=== PATIENT | female | born 1965 | race Caucasian/White ===

== ENCOUNTER 2018-08-02 12:51 | Emergency (ER) | payer MEDICARE ==
[2018-08-02 13:58] LABS: BASOPHIL % 0.3 % (0.0-0.4); Basophil (Absolute #) 0.02 (0-0.4); Eosinophil % 2.6 % (0.00-5.0); Eosinophil (Absolute #) 0.18 (0-0.5); Granulocyte Absolute (ANC) 3.84 (1.4-6.9); Granulocytes % 55.9 % (36.0-66.0); Hematocrit 45.7 % (35-47); Hemoglobin 15.1 gm/dl (12.0-16.0); Lymphocyte (Absolute #) 2.39 (1.0-4.6); Lymphocytes % 34.7 % (24.0-44.0); Mean Cell Volume 81.5 fl (78-100); Mean Corpuscular Hemoglobin 26.9 pg (26-32); Mean Platelet Volume 11.6 fl (6-9.5); Monocyte (Absolute #) 0.45 (0.0-1.3); Monocytes % 6.5 % (0.0-12.0); Platelet Count 246 K/mm3 (150-450); Red Blood Count 5.61 M/mm3 (4.1-5.4); Red Cell Distribution Width 15.8 % (11.5-14.0); White Blood Count 6.9 K/mm3 (4.0-10.5)
--- NOTE | 2018-08-02 14:01 | ERPHSYRPT ---
- History of Present Illness Time Seen by Provider: 08/02/18 13:35 Source: patient, other (friends) Exam Limitations: no limitations Patient Subjective Stated Complaint: patient had what was presumed to be witnessed seizure in parking lot at [employer] brought in private car to ER Triage Nursing Assessment: pt alert nad orietnedx3, able to ambulate with assistance right arm has tremor, pulses equal bialteral radius, pupilsperrla2, lung soudns clear, patient did not bit tongue or deficate self. Physician History: This is a 52-year-old black female with history of high blood pressure, anxiety , depression. Patient is brought by her friend she apparently was noted to have tonic-clonic activity in a truck witnessed by her friends which lasted about 10 minutes questionable whether patient had any postictal period. Patient apparently had left [facility] shortly prior to having her seizure-like activity. The patient arrives in talking to her she has some tremor to her hands and is alert and oriented and talking well. the patient does state that she is on Xanax and hasn't taken any for a week she states she hasn't taken any of her medications for a week. Past medical history includes high blood pressure, anxiety, depression Past surgical history includes hysterectomy, left foot surgery, cholecystectomy. Social history of patient denies drug or alcohol use she does relate that she has tobacco use. Timing/Duration: today (just prior to arrival) Severity: moderate Modifying Factors: Improves With: other (no medications for one week) Associated Symptoms: seizure (10 minutes seizure-like activity prior to arrival) , No nausea, No vomiting, No abdominal pain, No shortness of breath, No heartburn, No diaphoresis, No cough, No chills, No chest pain, No fever, No headaches, No loss of appetite, No malaise, No rash, No syncope Allergies/Adverse Reactions: tramadol Allergy (Verified 08/02/18 13:04) Home Medications: Omeprazole 08/02/18 [History] Trazodone HCl 150 mg [Desyrel 150 MG] 08/02/18 [History] Venlafaxine HCl [Effexor Xr] 08/02/18 [History] Venlafaxine HCl [Venlafaxine HCl ER] 08/02/18 [History] lamoTRIgine [Lamictal] 08/02/18 [History] Hx Tetanus, Diphtheria Vaccination/Date Given: Yes Hx Influenza Vaccination/Date Given: Yes Hx Pneumococcal Vaccination/Date Given: Yes Immunizations Up to Date: Yes - Review of Systems Constitutional: No Fever, No Chills Eyes: No Symptoms Ears, Nose, & Throat: No Symptoms Respiratory: No Cough, No Dyspnea Cardiac: No Chest Pain, No Edema, No Syncope Abdominal/Gastrointestinal: No Abdominal Pain, No Nausea, No Vomiting, No Diarrhea Genitourinary Symptoms: No Dysuria Musculoskeletal: No Symptoms Skin: No Rash Neurological: Seizure (10 minutes seizure-like activity prior to arrival), Tremors, No Dizziness, No Focal Weakness, No Gait Changes, No Headache, No Lethargy, No Paralysis, No Parasthesia Psychological: Anxiety, Depression Endocrine: No Symptoms All Other Systems: Reviewed and Negative - Past Medical History Pertinent Past Medical History: Yes Neurological History: Seizures Psycho-Social History: Anxiety, Depression - Past Surgical History Past Surgical History: No - Social History Smoking Status: Current every day smoker Drug Use: none Patient Lives Alone: Yes - Female History Hx Now: No - Nursing Vital Signs Nursing Vital Signs: Initial Vital Signs Temperature 99 F 08/02/18 12:51 Pulse Rate 70 08/02/18 12:51 Respiratory Rate 16 08/02/18 12:51 Blood Pressure 143/86 08/02/18 12:51 O2 Sat by Pulse Oximetry 97 08/02/18 12:51 Pain Scale Pain Intensity 0 - Physical Exam General Appearance: no apparent distress, alert, other (tremor in hands when attempts finger to nose) Eye Exam: PERRL/EOMI Ears, Nose, Throat Exam: normal ENT inspection, TMs normal, pharynx normal, moist mucous membranes Neck Exam: normal inspection, non-tender, supple, full range of motion Respiratory Exam: normal breath sounds, lungs clear, No respiratory distress Cardiovascular Exam: regular rate/rhythm, normal heart sounds, normal peripheral pulses, capillary refill <2 sec Gastrointestinal/Abdomen Exam: soft, normal bowel sounds, No tenderness, No mass Back Exam: normal inspection, normal range of motion, No CVA tenderness, No vertebral tenderness Extremity Exam: normal inspection, normal range of motion, pelvis stable Neurologic Exam: alert, oriented x 3, 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, normal mood/ affect, other (tremor in hands when attempts finger to nose), No motor deficits , No sensory deficit, No intoxicated appearance, No slurred speech Skin Exam: normal color, warm, dry, No rash Lymphatic Exam: No adenopathy SpO2 Interpretation: normal (97%) SpO2: 97 - Course Nursing assessment & vital signs reviewed: Yes EKG Interpreted by Me: RATE (66 bpm), Sinus Rhythm, NORMAL AXIS, Other (EKG: Sinus rhythm, 66 beats per minute, normal axis, no acute ST or T wave changes) - CT Exams Head CT Interpretation: Discussed w/radiologist (head CT: Normal head CT without contrast exam.) Ordered Tests: Active Orders 24 hr Category Date Time Status Accucheck STAT Care 08/02/18 13:42 Active EKG-ER Only STAT Care 08/02/18 13:42 Active HEAD WITHOUT CONTRAST [CT] Stat Exams 08/02/18 14:57 Completed ACETAMINOPHEN Stat Lab 08/02/18 13:55 Completed CBC W DIFF Stat Lab 08/02/18 13:55 Completed CMP Stat Lab 08/02/18 13:55 Completed CULTURE,URINE Stat Lab 08/02/18 13:43 Received ETHYL ALCOHOL Stat Lab 08/02/18 13:55 Completed SALICYLATE Stat Lab 08/02/18 13:55 Completed UA W/RFX UR CULTURE Stat Lab 08/02/18 13:43 Completed Urine Triage Profile Stat Lab 08/02/18 13:43 Completed Medication Summary Generic Name Dose Route Start Last Admin Trade Name Freq PRN Reason Stop Dose Admin Sodium Chloride 1,000 mls @ 100 mls/hr 08/02/18 13:45 08/02/18 14:13 Sodium Chloride 0.9% 1000 Ml IV 09/01/18 13:44 100 mls/hr .Q10H EMANI Administration Discontinued Medications Generic Name Dose Route Start Last Admin Trade Name Freq PRN Reason Stop Dose Admin Lorazepam 1 mg 08/02/18 13:42 08/02/18 14:13 Ativan 2 Mg/1 Ml Vial IV 08/02/18 13:43 1 mg STAT ONE Administration Lorazepam Confirm 08/02/18 14:08 Ativan 2 Mg/1 Ml Vial Administered 08/02/18 14:09 Dose 2 mg .ROUTE .STK-MED ONE Potassium Chloride 20 meq 08/02/18 16:04 Klor Con 10 Meq PO 08/02/18 16:05 STAT ONE Lab/Rad Data: Laboratory Result Diagrams 08/02/18 13:55 08/02/18 13:55 Laboratory Results 08/02/18 08/02/18 08/02/18 Range/Units 13:55 13:55 13:43 WBC 6.9 (4.0-10.5) K/mm3 RBC 5.61 H (4.1-5.4) M/mm3 Hgb 15.1 (12.0-16.0) gm/dl Hct 45.7 (35-47) % MCV 81.5 (78-100) fl MCH 26.9 (26-32) pg MCHC 33.0 (32-36) g/dl RDW 15.8 H (11.5-14.0) % Plt Count 246 (150-450) K/mm3 MPV 11.6 H (6-9.5) fl Gran % 55.9 (36.0-66.0) % Eos # (Auto) 0.18 (0-0.5) Absolute Lymphs (auto) 2.39 (1.0-4.6) Absolute Monos (auto) 0.45 (0.0-1.3) Lymphocytes % 34.7 (24.0-44.0) % Monocytes % 6.5 (0.0-12.0) % Eosinophils % 2.6 (0.00-5.0) % Basophils % 0.3 (0.0-0.4) % Absolute Granulocytes 3.84 (1.4-6.9) Basophils # 0.02 (0-0.4) Sodium 140 (137-145) mmol/L Potassium 3.3 L (3.5-5.1) mmol/L Chloride 99 (98-107) mmol/L Carbon Dioxide 28 (22-30) mmol/L Anion Gap 16.3 H (5-15) MEQ/L BUN 7 (7-17) mg/dL Creatinine 0.78 (0.52-1.04) mg/dL Estimated GFR > 60.0 ML/MIN Glucose 137 H (74-106) mg/dL Calcium 10.2 (8.4-10.2) mg/dL Total Bilirubin 0.40 (0.2-1.3) mg/dL AST 25 (14-36) U/L ALT 28 (0-35) U/L Alkaline Phosphatase 79 (38-126) U/L Serum Total Protein 8.7 H (6.3-8.2) g/dL Albumin 4.8 (3.5-5.0) g/dL Urine Color (YELLOW) Urine Appearance (CLEAR) Urine pH (5-6) Ur Specific [place] (1.005-1.025) Urine Protein (Negative) Urine Ketones (NEGATIVE) Urine Blood (0-5) Michael/ul Urine Nitrite (NEGATIVE) Urine Bilirubin (NEGATIVE) Urine Urobilinogen (0-1) mg/dL Ur Leukocyte Esterase (NEGATIVE) Urine WBC (Auto) (0-5) /HPF Urine RBC (Auto) (0-2) /HPF U Epithel Cells (Auto) (FEW) /HPF Urine Bacteria (Auto) (NEGATIVE) /HPF Urine Culture Reflexed (NO) Urine Glucose (NEGATIVE) mg/dL Salicylates < 1.0 L (2-20) mg/dL Urine Opiates Level NEGATIVE (NEGATIVE) Ur Methadone NEGATIVE (NEGATIVE) Acetaminophen < 10 L (10-30) ug/ml Urine Barbiturates NEGATIVE (NEGATIVE) Ur Phencyclidine (PCP) NEGATIVE (NEGATIVE) Urine Amphetamine NEGATIVE (NEGATIVE) U Benzodiazepine Level NEGATIVE (NEGATIVE) Urine Cocaine NEGATIVE (NEGATIVE) Urine Marijuana (THC) NEGATIVE (NEGATIVE) Ethyl Alcohol < 10 (0-10) mg/dL 08/02/18 Range/Units 13:43 WBC (4.0-10.5) K/mm3 RBC (4.1-5.4) M/mm3 Hgb (12.0-16.0) gm/dl Hct (35-47) % MCV (78-100) fl MCH (26-32) pg MCHC (32-36) g/dl RDW (11.5-14.0) % Plt Count (150-450) K/mm3 MPV (6-9.5) fl Gran % (36.0-66.0) % Eos # (Auto) (0-0.5) Absolute Lymphs (auto) (1.0-4.6) Absolute Monos (auto) (0.0-1.3) Lymphocytes % (24.0-44.0) % Monocytes % (0.0-12.0) % Eosinophils % (0.00-5.0) % Basophils % (0.0-0.4) % Absolute Granulocytes (1.4-6.9) Basophils # (0-0.4) Sodium (137-145) mmol/L Potassium (3.5-5.1) mmol/L Chloride (98-107) mmol/L Carbon Dioxide (22-30) mmol/L Anion Gap (5-15) MEQ/L BUN (7-17) mg/dL Creatinine (0.52-1.04) mg/dL Estimated GFR ML/MIN Glucose (74-106) mg/dL Calcium (8.4-10.2) mg/dL Total Bilirubin (0.2-1.3) mg/dL AST (14-36) U/L ALT (0-35) U/L Alkaline Phosphatase (38-126) U/L Serum Total Protein (6.3-8.2) g/dL Albumin (3.5-5.0) g/dL Urine Color STRAW (YELLOW) Urine Appearance CLEAR (CLEAR) Urine pH 6.0 (5-6) Ur Specific [place] 1.004 (1.005-1.025) Urine Protein NEGATIVE (Negative) Urine Ketones NEGATIVE (NEGATIVE) Urine Blood NEGATIVE (0-5) Michael/ul Urine Nitrite NEGATIVE (NEGATIVE) Urine Bilirubin NEGATIVE (NEGATIVE) Urine Urobilinogen NEGATIVE (0-1) mg/dL Ur Leukocyte Esterase NEGATIVE (NEGATIVE) Urine WBC (Auto) 6-10 (0-5) /HPF Urine RBC (Auto) NONE (0-2) /HPF U Epithel Cells (Auto) RARE (FEW) /HPF Urine Bacteria (Auto) PACKED (NEGATIVE) /HPF Urine Culture Reflexed YES (NO) Urine Glucose NEGATIVE (NEGATIVE) mg/dL Salicylates (2-20) mg/dL Urine Opiates Level (NEGATIVE) Ur Methadone (NEGATIVE) Acetaminophen (10-30) ug/ml Urine Barbiturates (NEGATIVE) Ur Phencyclidine (PCP) (NEGATIVE) Urine Amphetamine (NEGATIVE) U Benzodiazepine Level (NEGATIVE) Urine Cocaine (NEGATIVE) Urine Marijuana (THC) (NEGATIVE) Ethyl Alcohol (0-10) mg/dL - Progress Progress: improved Progress Note: 08/02/18 14:01 52-year-old black female with history of high blood pressure, anxiety, depression. Patient with 10 minutes of seizure-like activity after leaving [facility] which occurred in his truck. On arrival patient appeared to have a tremor of her hands when she tried to do finger to nose she had normal neurologic function no neurologic deficits she was alert and oriented. I went back to the desk and will while I was discussing another patient with a different physician. Patient's friends came out to the desk and stated that patient was having a seizure. On arrival patient had shaking of her left upper arm she was laid on her left side. I went ahead and laid my hands on the patient and helped her to rollover in immediately she stopped having seizure-like activity. I've already ordered Ativan for the patient 1 mg IV. Will go ahead and add a CT of the head for the patient's. Labs are ordered for the patient. Impression seizure versus nonepileptic seizure. 08/02/18 15:52 The patient feeling markedly better after Ativan 1 mg IV. Patient does state she has not taken her Xanax for a week she takes Xanax at bedtime every day and has done for years but had not taken it for one week. She says she has a prescription for her Xanax waiting for her to fill. Awaiting head CT. 08/02/18 16:[address] within normal limits. Patient with a potassium of 3.3. Will give patient 20 mEq of potassium. She is feeling much better after Ativan, tremor has resolved. 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 Will go ahead and discharge patient she is to followup with her family . Will give patient seizure instructions. - Departure Departure Disposition: Home Clinical Impression: Seizure-like activity, sseizure versus nonepileptic seizure Benzodiazepine withdrawal Qualifiers: Complication of substance-induced condition: with unspecified complication Qualified Code(s): F13.239 - Sedative, hypnotic or anxiolytic dependence with withdrawal, unspecified Condition: Fair Critical Care Time: No Referrals: WILLARD COUCH [Primary Care Provider] - Instructions: Seizures, Adult (DC) Additional Instructions: Return home. No [place]. No hazardous activity. Take showers instead of baths. No driving. Not engage in any activity which might harm yourself or others. Be sure to fill your medications and take them as directed. Followup with your family . Return for acute distress severe symptoms or for any problems.
[2018-08-02] MEDS ORDERED: Ativan 2 MG/1 ML VIAL ONE (14:08)
[2018-08-02] MEDS ORDERED: Sodium Chloride 0.9% 1000 ML 1,000 ML ONE (14:08)
[2018-08-02 14:10] LABS: ALBUMIN 4.8 g/dL (3.5-5.0); ALKALINE PHOSPHATASE 79 U/L (38-126); ANION GAP 16.3 MEQ/L (5-15); BLOOD UREA NITROGEN 7 mg/dL (7-17); CHLORIDE 99 mmol/L (98-107); Calcium 10.2 mg/dL (8.4-10.2); Carbon Dioxide 28 mmol/L (22-30); Creatinine 1 0.78 mg/dL (0.52-1.04); Glucose 137 mg/dL (74-106); Potassium 3.3 mmol/L (3.5-5.1); SGOT/AST 25 U/L (14-36); SGPT/ALT 28 U/L (0-35); SODIUM 140 mmol/L (137-145); Total Protein 8.7 g/dL (6.3-8.2)
[2018-08-02 14:13] LABS: ACETAMINOPHEN < 10 ug/ml (10-30); ETHYL ALCOHOL < 10 mg/dL (0-10); SALICYLATE < 1.0 mg/dL (2-20)
[2018-08-02] MEDS: Ativan 2 MG/1 ML VIAL IV ONE (14:13)
[2018-08-02] MEDS: Sodium Chloride 0.9% 1000 ML 1,000 ML IV SCH (14:13)
[2018-08-02 14:16] LABS: Appearance CLEAR (CLEAR); Bacteria PACKED /HPF (NEGATIVE); Bilirubin NEGATIVE (NEGATIVE); Blood NEGATIVE Ery/ul (0-5); Epithelial Cells RARE /HPF (FEW); Glucose NEGATIVE (NEGATIVE); Ketones NEGATIVE (NEGATIVE); Leukocyte Esterase NEGATIVE (NEGATIVE); Nitrite NEGATIVE (NEGATIVE); Protein,Urine Dip NEGATIVE (Negative); Specific Gravity 1.004 (1.005-1.025); Urobilinogen NEGATIVE mg/dL (0-1)
[2018-08-02 14:24] LABS: Amphetamine,Urine NEGATIVE (NEGATIVE); Barbiturate,Urine NEGATIVE (NEGATIVE); Benzodiazepine,Urine NEGATIVE (NEGATIVE); Cocaine,Urine NEGATIVE (NEGATIVE); Methadone,Urine NEGATIVE (NEGATIVE); Opiate,Urine NEGATIVE (NEGATIVE); PCP,Urine NEGATIVE (NEGATIVE); THC,Urine NEGATIVE (NEGATIVE)
[2018-08-02 14:49] VITALS: BP 121/78; PULSE 71
[2018-08-02 15:53] VITALS: O2SAT 97
--- NOTE | 2018-08-02 16:08 | XRAY ---
Indication: Dizziness and weakness. Seizure. Multiple contiguous axial images obtained through the head without contrast. Comparison: None Normal appearing brain parenchyma, ventricles, and bony calvarium. Visualized paranasal sinuses and mastoid air cells are clear. Impression: Normal CT head without contrast exam. CTDI 69.66
[2018-08-02] MEDS ORDERED: Klor Con 10 MEQ PO ONE (16:11)
[2018-08-02] MEDS: Klor Con 10 MEQ PO ONE (16:12)
== END 2018-08-02 16:20 | disposition home or self-care (01) ==
LOC: ED 12:51
DX: R56.9 Unspecified convulsions (principal); F13.239 Sedative, hypnotic or anxiolytic dependence with withdrawal, unspecified; Z79.899 Other long term (current) drug therapy
CPT/HCPCS: 36000; 36415; 70450; 80053; 80307; 81001; 82962; 85025; 87086; 93005; 96374; 99284; G0480; G0481; 96360; J2060; A9270-GY